=== PATIENT | female | born 1975 | race Caucasian/White ===

== ENCOUNTER → 2020-06-19 11:19 | Outpatient (BNVA) | payer OTHER, SELFPAY | PROVIDERS: Family Provider Nurse Practitioner Family; PCP Nurse Practitioner Family; Visit Provider Nurse Practitioner Family | DX: R60.9 Edema, unspecified (principal) | CPT/HCPCS: 80053; 85025 ==

== ENCOUNTER → 2020-07-18 09:02 | Outpatient (BNVA) | payer OTHER, SELFPAY | PROVIDERS: Family Provider Nurse Practitioner Family; PCP Nurse Practitioner Family; Visit Provider Nurse Practitioner Family | DX: R60.9 Edema, unspecified (principal) | CPT/HCPCS: 80048 ==

== ENCOUNTER → 2021-04-12 10:47 | Outpatient (BNVA) | payer OTHER, SELFPAY | PROVIDERS: Family Provider Nurse Practitioner Family; PCP Nurse Practitioner Family; Visit Provider Nurse Practitioner Family | DX: M25.552 Pain in left hip (principal); M16.12 Unilateral primary osteoarthritis, left hip | CPT/HCPCS: 73502 ==

== ENCOUNTER 2021-06-07 11:47 | Outpatient (CLI) | payer OTHER, SELFPAY ==
--- NOTE | 2021-06-07 11:55 | MR_ITS ---
WS: [id number] MRI LEFT hip, noncontrast. COMPARISON: Chronic pain, no injury. COMPARISON: LEFT hip radiograph 04/12/2021. Mild narrowing of the hip joints bilaterally. Mild surface cortical irregularity over the LEFT femora l head. There is a small osteophyte from the superior lateral acetabulum. There is a lobulated cystic mass extending anteriorly from the superior hip joint measuring 2.0 x 2.1 cm. This is closely associ ated with the labrum. The labrum is abnormal and there is a focal fluid-filled tract extending to the labrum anteriorly and superiorly consistent with a labral tear. There is an additional 1.1 cm mixed signal in the anterior acetabulum which is probably a subchondral cyst. May be related to prior traum a. There is a small amount of fluid extending into the pelvis along the iliacus muscle which is probably a reactive response to a paravertebral labral cyst. There is a lobulated irregular cystic mass in the LEFT adnexa measuring 3.7 x 3.3 cm. This may be rel ated to the LEFT ovary. Due to its slightly irregular lobulated shape consider transvaginal pelvic ul trasound follow-up to exclude neoplasm. There is no ascites. Also noted is a small bursal collection associated with the posterior RIGHT hip seen only on the dex nal image of the pelvis. This may be fluid within the iliopsoas bursa. MR/MR hip LT con* [id number] IMPRESSION: 1. Large LEFT paralabral cyst. Cyst associated with the anterior superior LEFT hip labrum. 2. Subchondral cyst in the superior LEFT acetabulum. 3. Smaller fluid collection along the posterior inferior RIGHT hip may be relat ed to iliopsoas bursitis. 4. Lobulated irregular cystic mass in the LEFT adnexa. May be a normal LEFT ova ry with small cysts but due to its irregular shape consider transvaginal pelvic ultrasound evaluation to exclude early ovarian abnormality.
== END 2021-06-07 11:48 | disposition home or self-care (01) ==
LOC: RAD 11:47
PROVIDERS: PCP Nurse Practitioner Family; Visit Provider Nurse Practitioner Family
DX: M25.552 Pain in left hip (principal); M24.852 Other specific joint derangements of left hip, not elsewhere classified
CPT/HCPCS: 73721

== ENCOUNTER → 2021-06-18 11:50 | Outpatient (BNVA) | payer OTHER, SELFPAY | PROVIDERS: PCP Nurse Practitioner Family; Visit Provider Nurse Practitioner Family | DX: R60.9 Edema, unspecified (principal) | CPT/HCPCS: 80053; 80061; 83036; 84443; 85025 ==

== ENCOUNTER → 2021-07-01 11:28 | Outpatient (BNVA) | payer OTHER, SELFPAY | PROVIDERS: PCP Nurse Practitioner Family; Referring Provider Nurse Practitioner Family; Visit Provider Specialist | DX: M25.552 Pain in left hip (principal) | CPT/HCPCS: 73502 ==

== ENCOUNTER 2021-07-15 08:23 | Outpatient (CLI) | payer OTHER, SELFPAY ==
--- NOTE | 2021-07-15 08:45 | US_ITS ---
WS: [email or web address] TRANSABDOMINAL PELVIC AND TRANSVAGINAL PELVIC ULTRASOUND HISTORY: R93.89 - Abnormal findings on diagnostic imaging of other... COMPARISON: MRI 06/07/2021 and prior ultrasound 08/02/2012 Uterus: 8.8 cm x 5.3 cm x 4.1 cm. Normal size anteverted uterus. No fibroid identified. Endometrium: 0.5 cm. There is a bright specular reflector extending from the endometrial canal into t he cervix. Bright specular reflectors along the cervix may be the strings of the IUD. At least a port ion of the IUD is along the endometrium. Unfortunately the study is compromised by patient's body hab itus. Right ovary: 3.2 cm x 2.2 cm x 1.8 cm. Normal size and echogenicity. Normal vascularity. Left ovary: 2.8 cm x 2.4 cm x 2.1 cm. Normal size and echogenicity. Small follicles in the periphery. No solid mass identified. Normal vascularity. No free fluid. US/US pelvic with transvaginal IMPRESSION: 1. No ovarian mass or adnexal mass. Small follicle LEFT ovary. No solid mass i dentified. 2. There is a bright specular reflector along the cervical canal. This may be due to the strings of the IUD. The IUD does appear appropriately positioned. Th ere is shadowing obscuring the posterior uterus which is typically seen with an IUD in normal position. Suggest evaluation by PROOF MACHINE OPERATOR SUPERVISOR to confirm placement of IUD.
== END 2021-07-15 08:24 | disposition home or self-care (01) ==
LOC: RAD 08:23
PROVIDERS: PCP Nurse Practitioner Family; Visit Provider Nurse Practitioner Family
DX: R93.89 Abnormal findings on diagnostic imaging of other specified body structures (principal); N83.202 Unspecified ovarian cyst, left side
CPT/HCPCS: 76830; 76856

== ENCOUNTER → 2021-09-19 13:30 | Outpatient (BNVA) | payer OTHER, SELFPAY | PROVIDERS: PCP Nurse Practitioner Family; Visit Provider Nurse Practitioner Women's Health | DX: Z01.419 Encounter for gynecological examination (general) (routine) without abnormal findings (principal); Z12.39 Encounter for other screening for malignant neoplasm of breast | CPT/HCPCS: 87624 ==

== ENCOUNTER 2021-10-10 15:13 | Outpatient (CLI) | payer OTHER, SELFPAY ==
--- NOTE | 2021-10-10 15:26 | MM_ITS ---
WS: [email or web address] Exam: [place] [id number] Date/Time of Exam: 10/10/2021 3:44 PM Reason For Exam: Z12.39 - Encounter for other screening for malignant neop... VIEWS: MLO and CC views both breasts. 3D digital tomosynthesis is also included in this exam. Comparison made with prior exam of 08/24/2017. Findings: New 1 cm nodule seen in the superior posterior right breast. Tomographic sections suggest that this n odules in the lateral aspect of the breast. It cannot be identified on the cc view. There are no new suspicious findings in the left breast. Compression spot views of the right breast in the MLO project ion and exaggerated craniocaudal view of the right breast recommended for further workup. Also region al ultrasound of the upper outer quadrant of the right breast is suggested.Scattered fibroglandular d ensities MM/[place] [id number] Impression: BI-RADS: 0-Incomplete: Need additional imaging evaluation FOLLOW-UP: See Report This mammogram was also analyzed by the Computer Aided Detection System [employer].
== END 2021-10-10 15:14 | disposition home or self-care (01) ==
LOC: RAD 15:15
PROVIDERS: PCP Nurse Practitioner Family; Visit Provider Nurse Practitioner Women's Health
DX: Z12.31 Encounter for screening mammogram for malignant neoplasm of breast (principal)
CPT/HCPCS: 77063; 77067

== ENCOUNTER 2021-10-25 06:00 | Outpatient (RCR) | payer OTHER, SELFPAY | END 2021-11-13 23:59 | disposition home or self-care (01) | LOC: SPT 06:00 | PROVIDERS: PCP Nurse Practitioner Family; Referring Provider Specialist; Visit Provider Specialist | DX: M25.552 Pain in left hip (principal) | CPT/HCPCS: 97110; 97161 ==

== ENCOUNTER 2021-11-08 14:00 | Outpatient (CLI) | payer OTHER, SELFPAY ==
--- NOTE | 2021-11-08 14:10 | MM_ITS ---
WS: [email or web address] RIGHT 3D TOMOSYNTHESIS DIGITAL MAMMOGRAPHY WITH CAD CLINICAL INFORMATION: R92.8 - Other abnormal and inconclusive findings on diagn... COMPARISON: October 10, 2021 TECHNIQUE: 3 views of the right breast were obtained. FINDINGS: Scattered fibroglandular densities of the right breast. Previously described asymmetric density in th e superior posterior RIGHT breast compresses out on the spot compression views. Ultrasound of this ar ea described below. ULTRASOUND BREAST RIGHT TECHNIQUE: Ultrasound right breast focused area of concern. CLINICAL INFORMATION: R92.8 - Other abnormal and inconclusive findings on diagn... FINDINGS: Ultrasound RIGHT breast 900-12:00 position. No suspicious cystic or solid lesions. No lesions to targ et for biopsy. Incidental normal appearing slightly prominent lymph node in the RIGHT axilla. No susp icious findings. MM/[place] [id number] IMPRESSION: BI-RADS: 2-Benign FOLLOW UP: 1 Year Follow-up Recommend return to annual screening mammography.
== END 2021-11-08 14:01 | disposition home or self-care (01) ==
LOC: RAD 14:01
PROVIDERS: PCP Nurse Practitioner Family; Visit Provider Nurse Practitioner Women's Health
DX: R92.8 Other abnormal and inconclusive findings on diagnostic imaging of breast (principal)
CPT/HCPCS: 76642; 77061

== ENCOUNTER 2021-11-14 06:00 | Outpatient (RCR) | payer OTHER, SELFPAY | END 2021-12-06 23:59 | disposition home or self-care (01) | LOC: SPT 06:00 | PROVIDERS: PCP Nurse Practitioner Family; Visit Provider Specialist | DX: S73.192D Other sprain of left hip, subsequent encounter (principal); X58.XXXD Exposure to other specified factors, subsequent encounter | CPT/HCPCS: 97110 ==

== ENCOUNTER → 2022-01-06 15:30 | Outpatient (BNVA) | payer OTHER, SELFPAY | PROVIDERS: PCP Nurse Practitioner Family; Visit Provider Nurse Practitioner Family | DX: J02.9 Acute pharyngitis, unspecified (principal); R50.9 Fever, unspecified; J02.0 Streptococcal pharyngitis | CPT/HCPCS: 87400; 87426; 87880 ==

== ENCOUNTER → 2022-03-26 10:23 | Outpatient (BNVA) | payer OTHER, SELFPAY | PROVIDERS: PCP Nurse Practitioner Family; Visit Provider Nurse Practitioner Family | DX: R60.9 Edema, unspecified (principal); R73.9 Hyperglycemia, unspecified; E66.01 Morbid (severe) obesity due to excess calories; Z68.41 Body mass index [BMI] 40.0-44.9, adult | CPT/HCPCS: 80053; 80061; 82607; 83036; 83735; 84443; 85025 ==

== ENCOUNTER → 2022-06-30 14:42 | Outpatient (BNVA) | payer OTHER, SELFPAY | PROVIDERS: PCP Nurse Practitioner Family; Visit Provider Specialist | DX: S73.192A Other sprain of left hip, initial encounter (principal); M16.12 Unilateral primary osteoarthritis, left hip; X58.XXXA Exposure to other specified factors, initial encounter | CPT/HCPCS: 73502 ==

== ENCOUNTER 2022-07-28 09:13 | Outpatient (CLI) | payer OTHER, SELFPAY ==
--- NOTE | 2022-07-28 09:30 | MR_ITS ---
WS: [email or web address] EXAMINATION: MR hip LT wo/w con [id number] ORDER DATE: 07/28/2022 9:26 AM COMPARISON: MRI June 07, 2021 HISTORY: M16.12 - Unilateral primary osteoarthritis, left hip CONTRAST: None. TECHNIQUE: Coronal STIR of the Pelvis. Coronal proton density, coronal T1, axial T2 fat sat, axial T1 , sagittal T2 fat sat, and sagittal T1 performed of the hip. After contrast, axial T1 fat sat, coron al T1 fat sat, and sagittal T1 fat sat were performed. FINDINGS: Moderate to advanced osteoarthritis LEFT hip progressed compared to previous. Edema with subchondral cystic change involving the anterior superior acetabulum. Prominent subchondral cyst in the anterior acetabulum similar to previous measuring 2.1 CM. Again seen is suspected in anterosuperior labral tea r similar to previous. Small joint effusion. Extraosseous labral cyst no longer visualized today. Mil d subchondral change in the underlying femoral head. No evidence of avascular necrosis or femoral hea d collapse. Small joint effusion. A few small calcified loose bodies dorsal joint space. Small amount of fluid ex tending into the iliopsoas bursa. Normal bone marrow signal in the bony pelvis and sacrum. Normal bone marrow signal in the RIGHT hip a nd acetabulum. Fluid and edema extends into the obturator externus bursa. Multifollicular ovaries rik aterally. MR/MR hip LT wo/w con [id number] IMPRESSION: 1. Moderate to advanced arthritis LEFT hip progressed compared to previous. 2. Associated subchondral cystic change and edema in the acetabulum similar to previous with peripheral enhancing subchondral cyst. This is worse in the ante rior superior acetabulum. 3. Small amount of subchondral cystic change femoral head. No avascular necros is or subchondral collapse. 4. Small joint effusion with small calcified loose bodies in the dorsal hip. 5. Small amount of fluid and edema extends into the iliopsoas bursa and obtura tor externus bursa.
[2022-07-28] MEDS: gadobenate dimeglumine 20 mL vial IV (10:50)
== END 2022-07-28 09:14 | disposition home or self-care (01) ==
LOC: RAD 09:18
PROVIDERS: PCP Nurse Practitioner Family; Visit Provider Specialist
DX: M16.12 Unilateral primary osteoarthritis, left hip (principal); S73.192A Other sprain of left hip, initial encounter; X58.XXXA Exposure to other specified factors, initial encounter; M25.452 Effusion, left hip; M25.852 Other specified joint disorders, left hip
CPT/HCPCS: 73723; A9577

== ENCOUNTER 2022-11-10 12:58 | Outpatient (CLI) | payer OTHER, SELFPAY ==
--- NOTE | 2022-11-10 13:05 | MM_ITS ---
WS: [email or web address] BILATERAL 3D TOMOSYNTHESIS DIGITAL DIAGNOSTIC MAMMOGRAPHY WITH CAD CLINICAL INFORMATION: LT BREAST PAIN HISTORY: LEFT breast lump COMPARISON: 11/08/2021 TECHNIQUE: Bilateral CC, MLO, and ML views. FINDINGS: Scattered fibroglandular densities bilaterally. Palpable marker upper outer LEFT breast. Normal under lying parenchymal tissue. Ultrasound is pending. RIGHT breast is unremarkable and unchanged compared to previous. ULTRASOUND BREAST LEFT TECHNIQUE: Ultrasound left breast focused area of concern. CLINICAL INFORMATION: LT BREAST PAIN FINDINGS: Ultrasound LEFT breast in the area of concern 2:00 LEFT breast. Normal underlying parenchymal tissue. No cystic or solid lesions. No suspicious lesions to target for biopsy. Findings are benign. IMPRESSION: MM/[place] [id number] BI-RADS: 2-Benign FOLLOW UP: 1 Year Follow-up Recommend return to annual screening mammography.
== END 2022-11-10 12:59 | disposition home or self-care (01) ==
PROVIDERS: PCP Nurse Practitioner Family; Visit Provider Nurse Practitioner Women's Health
DX: N63.21 Unspecified lump in the left breast, upper outer quadrant (principal); N64.4 Mastodynia
CPT/HCPCS: 76642; 77062; G0279

== ENCOUNTER 2023-10-02 07:49 | Outpatient (CLI) | payer OTHER, SELFPAY ==
[2023-10-02 08:02] LABS: Basophils % 0.7 %; Eosinophils # 0.1 10^3/uL (0.0-0.8); Eosinophils % 1.5 %; Hematocrit 39.4 % (36-47); Lymphocytes # 1.4 10^3/uL (0.8-4.8); Lymphocytes % 23.2 %; Mean Corpuscular Hemoglobin 30.2 pg (27-33); Mean Corpuscular Volume 91.6 fl (85-98); Mean Platelet Volume 9.2 fL (7.4-10.4); Monocytes # 0.3 10^3/uL (0.2-0.9); Monocytes % 5.3 %; Neutrophils # 4.01 10^3/uL (1.8-7.7); Neutrophils % 69.1 %; Nucleated Red Blood Cells % 0 %; Platelet Count 234 10^3/cmm (157-399); Red Cell Distribution Width 12.8 % (12.1-15.1); White Blood Count 5.81 10^3/uL (3.29-11.43)
[2023-10-02 08:43] LABS: Anion Gap 15.1 (5-19); Blood Urea Nitrogen 16 mg/dL (6-20); Calcium 8.8 mg/dL (8.5-10.5); Carbon Dioxide 23 mmol/L (22-29); Chloride 104 mmol/L (98-107); Glomerular Filtration Rate 107.2 mL/min (90-130); Glucose 95 mg/dL (65-115); Osmolality Calculated 287 mOsm/kg (285-295); Potassium 4.1 mmol/L (3.5-5.1); Sodium 138 mmol/L (136-145)
[2023-10-02 08:44] LABS: Alanine Aminotransferase 10 U/L (0-33); Alkaline Phosphatase 48 U/L (35-105); Aspartate Amino Transferase 11 U/L (0-32); Chol HDL Ratio 2.34 mg/dL (0.0-4.40); Cholesterol 136 mg/dL (0-200); Globulin 2.7 g/dL (1.3-4.6); HDL Cholesterol 58 mg/dL (60-100); LDL Cholesterol Calculated 62 mg/dL (50-129); LDL HDL Ratio 1.07 RATIO (0.00-3.22); Thyroid Stimulating Hormone 1.92 uIU/mL (0.27-4.20); Total Bilirubin 0.2 mg/dL (0.15-1.2); Total Protein 6.7 g/dL (6.6-8.7); Triglycerides 78 mg/dL (0-150)
[2023-10-02 08:47] LABS: Estmated Average Glucose 85; Hemoglobin A1C 4.6 % (4.0-6.0)
== END 2023-10-02 07:50 | disposition home or self-care (01) ==
LOC: LAB 07:50
PROVIDERS: PCP Nurse Practitioner Family; Visit Provider Nurse Practitioner Family
DX: R60.9 Edema, unspecified (principal); R73.9 Hyperglycemia, unspecified
CPT/HCPCS: 36415; 80053; 80061; 83036; 84443; 85025

== ENCOUNTER 2023-10-15 09:35 | Outpatient (CLI) | payer OTHER, SELFPAY ==
[2023-10-15 10:09] LABS: Anion Gap 15.1 (5-19); Blood Urea Nitrogen 15 mg/dL (6-20); Carbon Dioxide 25 mmol/L (22-29); Chloride 102 mmol/L (98-107); Glomerular Filtration Rate 89.7 mL/min (90-130); Glucose 94 mg/dL (65-115); Osmolality Calculated 287 mOsm/kg (285-295); Potassium 4.1 mmol/L (3.5-5.1); Sodium 138 mmol/L (136-145)
== END 2023-10-15 09:36 | disposition home or self-care (01) ==
LOC: LAB 09:36
PROVIDERS: PCP Nurse Practitioner Family; Visit Provider Nurse Practitioner Family
DX: R60.9 Edema, unspecified (principal)
CPT/HCPCS: 36415; 80048

== ENCOUNTER 2023-11-24 09:30 | Outpatient (CLI) | payer OTHER, SELFPAY ==
--- NOTE | 2023-11-24 09:37 | MM_ITS ---
WS: [email or web address] BILATERAL 3D TOMOSYNTHESIS DIGITAL SCREENING MAMMOGRAPHY WITH CAD CLINICAL INFORMATION: Z12.39 - Encounter for other screening for malignant neop... HISTORY: Screening mammogram. No current complaints. COMPARISON: 2022 TECHNIQUE: Bilateral CC and MLO views. FINDINGS: Scattered fibroglandular densities bilaterally. No suspicious focal mass, asymmetry, calcifications, or architectural distortion. No evidence of malignancy. MM/[place] [id number] IMPRESSION: DENSITY: There are scattered areas of fibroglandular density. BI-RADS: 2 - Benign. FOLLOW UP: 1 Year Follow-up Recommend return to annual screening mammography.
== END 2023-11-24 09:37 | disposition home or self-care (01) ==
PROVIDERS: PCP Nurse Practitioner Family; Visit Provider Nurse Practitioner Women's Health
DX: Z12.31 Encounter for screening mammogram for malignant neoplasm of breast (principal); R92.323 Mammographic fibroglandular density, bilateral breasts
CPT/HCPCS: 77063; 77067

== ENCOUNTER → 2024-06-06 09:36 | Outpatient (BNVA) | payer OTHER, SELFPAY | PROVIDERS: PCP Nurse Practitioner Family; Visit Provider Nurse Practitioner Family | DX: R60.9 Edema, unspecified (principal); R73.9 Hyperglycemia, unspecified | CPT/HCPCS: 80053; 82306; 83036; 84443; 85025 ==

== ENCOUNTER → 2024-09-05 09:53 | Outpatient (BNVA) | payer OTHER, SELFPAY | PROVIDERS: PCP Nurse Practitioner Family; Visit Provider Nurse Practitioner Family | DX: R60.9 Edema, unspecified (principal) | CPT/HCPCS: 80053; 80061; 84443; 85025 ==

== ENCOUNTER → 2024-11-28 10:33 | Outpatient (BNVA) | payer OTHER, SELFPAY | PROVIDERS: PCP Nurse Practitioner Family; Visit Provider Nurse Practitioner Family | DX: R60.9 Edema, unspecified (principal) | CPT/HCPCS: 80053 ==

== ENCOUNTER → 2025-03-06 14:30 | Outpatient (BNVA) | payer OTHER, SELFPAY | PROVIDERS: PCP Nurse Practitioner Family; Visit Provider Internal Medicine Endocrinology, Diabetes & Metabolism | DX: E11.9 Type 2 diabetes mellitus without complications (principal); E28.2 Polycystic ovarian syndrome | CPT/HCPCS: 36415; 80061; 82627; 83001; 83002; 83036; 84403; 84439; 84443 ==

== ENCOUNTER 2025-03-13 12:56 | Outpatient (CLI) | payer OTHER, SELFPAY ==
--- NOTE | 2025-03-13 13:00 | USR_ITS ---
PROCEDURE INFORMATION: Exam: US Soft Tissue Head and Neck, Thyroid Exam date and time: 03/13/2025 1:22 PM Age: 49 years old Clinical indication: Condition or disease; Other: Pcos; Additional info: Pcos, please include tirads TECHNIQUE: Imaging protocol: Real-time ultrasound scan of the neck with image documentation. Exam focused on the thyroid. COMPARISON: No relevant prior studies available. FINDINGS: Right thyroid lobe: The right thyroid lobe measures 4.5 x 1.0 x 1.3 cm. Echotexture is unremarkable. No right thyroid lobe nodules. Left thyroid lobe: The left thyroid lobe measures 4.0 x 1.2 x 1.3 cm. Echotexture is unremarkable. No left thyroid nodules. Isthmus: Thyroid isthmus is unremarkable and measures 3 mm. US/US thyroid [id number] IMPRESSION: Unremarkable thyroid ultrasound.
== END 2025-03-13 12:57 | disposition home or self-care (01) ==
LOC: RAD 12:57
PROVIDERS: PCP Nurse Practitioner Family; Visit Provider Family Medicine
DX: E28.2 Polycystic ovarian syndrome (principal)
CPT/HCPCS: 76536